=== PATIENT | female | born 1970 | race Caucasian/White ===

== ENCOUNTER → 2016-12-12 | Outpatient (REF) | payer OTHER | LOC: M SFHCPLAZ 08:19 | PROVIDERS: ATTEND Nurse Practitioner Family | DX: F32.9 Major depressive disorder, single episode, unspecified (principal) ==

== ENCOUNTER → 2017-07-10 | Outpatient (REF) | payer OTHER ==
[2017-07-10 12:42] LABS: ALBUMIN 4.2 GM/DL (3.2-5.2); ALBUMIN/GLOBULIN RATIO 1.62 (1.00-1.93); ALKALINE PHOSPHATASE 84 U/L (45-117); ALT/SGPT 44 U/L (12-78); ANION GAP 10 MEQ/L (8-16); AST/SGOT 22 U/L (15-37); BILIRUBIN,TOTAL 0.2 MG/DL (0.2-1.0); BLOOD UREA NITROGEN 16 MG/DL (7-18); CALCIUM LEVEL 9.7 MG/DL (8.5-10.1); CARBON DIOXIDE LEVEL 24 MEQ/L (21-32); CHLORIDE LEVEL 108 MEQ/L (98-107); CREATININE FOR GFR 0.96 MG/DL (0.55-1.02); FREE T4 1.05 NG/DL (0.76-1.46); GLOMERULAR FILTRATION RATE > 60.0 (>58); GLUCOSE, FASTING 106 MG/DL (70-105); POTASSIUM SERUM 4.7 MEQ/L (3.5-5.1); SODIUM LEVEL 142 MEQ/L (136-145); TOTAL PROTEIN 6.8 GM/DL (6.4-8.2)
== END ==
LOC: M SFHCPLAZ 08:11
PROVIDERS: ATTEND Nurse Practitioner Family
DX: F32.9 Major depressive disorder, single episode, unspecified (principal); E78.5 Hyperlipidemia, unspecified; E55.9 Vitamin D deficiency, unspecified

== ENCOUNTER → 2017-11-25 | Outpatient (REF) | payer OTHER ==
[2017-11-25 12:12] LABS: ALBUMIN 3.9 GM/DL (3.2-5.2); ALBUMIN/GLOBULIN RATIO 1.18 (1.00-1.93); ALKALINE PHOSPHATASE 95 U/L (45-117); ALT/SGPT 51 U/L (12-78); ANION GAP 10 MEQ/L (8-16); AST/SGOT 36 U/L (7-37); BILIRUBIN,TOTAL 0.3 MG/DL (0.2-1.0); BLOOD UREA NITROGEN 16 MG/DL (7-18); CALCIUM LEVEL 9.3 MG/DL (8.5-10.1); CARBON DIOXIDE LEVEL 25 MEQ/L (21-32); CHLORIDE LEVEL 106 MEQ/L (98-107); CREATININE FOR GFR 0.88 MG/DL (0.55-1.30); GLOMERULAR FILTRATION RATE > 60.0 (>58); GLUCOSE, FASTING 119 MG/DL (70-100); POTASSIUM SERUM 4.2 MEQ/L (3.5-5.1); SODIUM LEVEL 141 MEQ/L (136-145); TOTAL PROTEIN 7.2 GM/DL (6.4-8.2)
[2017-11-25 13:46] LABS: MALB URINE SIEMENS 14.5 MG/L
== END ==
LOC: M SFHCPLAZ 07:50
DX: I10 Essential (primary) hypertension (principal)

== ENCOUNTER 2018-01-13 20:22 | Emergency (ER) | payer OTHER | END 2018-01-13 22:12 | disposition home or self-care (01) | LOC: M ED 20:22 | DX: S16.1XXA Strain of muscle, fascia and tendon at neck level, initial encounter (principal); S29.012A Strain of muscle and tendon of back wall of thorax, initial encounter; S50.311A Abrasion of right elbow, initial encounter; V48.6XXA Car passenger injured in noncollision transport accident in traffic accident, initial encounter; Y92.9 Unspecified place or not applicable; Y93.9 Activity, unspecified; Y99.9 Unspecified external cause status; E11.9 Type 2 diabetes mellitus without complications; I10 Essential (primary) hypertension; F17.200 Nicotine dependence, unspecified, uncomplicated; M25.78 Osteophyte, vertebrae; M50.222 Other cervical disc displacement at C5-C6 level; M17.11 Unilateral primary osteoarthritis, right knee; Z79.82 Long term (current) use of aspirin; Z79.899 Other long term (current) drug therapy; Z88.8 Allergy status to other drugs, medicaments and biological substances | CPT/HCPCS: 73564 ==

== ENCOUNTER → 2018-05-26 | Outpatient (REF) | payer OTHER ==
[2018-05-26 11:10] LABS: ALBUMIN 3.7 GM/DL (3.2-5.2); ALBUMIN/GLOBULIN RATIO 0.95 (1.00-1.93); ALKALINE PHOSPHATASE 125 U/L (45-117); ALT/SGPT 53 U/L (12-78); ANION GAP 8 MEQ/L (8-16); AST/SGOT 34 U/L (7-37); BILIRUBIN,TOTAL 0.2 MG/DL (0.2-1.0); BLOOD UREA NITROGEN 18 MG/DL (7-18); CALCIUM LEVEL 9.3 MG/DL (8.5-10.1); CARBON DIOXIDE LEVEL 25 MEQ/L (21-32); CHLORIDE LEVEL 107 MEQ/L (98-107); CHOLESTEROL LEVEL 121 MG/DL (<200); CHOLESTEROL RISK RATIO 3.558 (<5); CREATININE FOR GFR 0.96 MG/DL (0.55-1.30); GLOMERULAR FILTRATION RATE > 60.0 (>58); GLUCOSE, FASTING 96 MG/DL (70-100); HDL CHOLESTEROL 34 MG/DL (>40); LDL CHOLESTEROL 49.2 MG/DL (<100); NON-HDL-C 87 MG/DL; POTASSIUM SERUM 4.9 MEQ/L (3.5-5.1); SODIUM LEVEL 140 MEQ/L (136-145); TOTAL PROTEIN 7.6 GM/DL (6.4-8.2); TRIGLYCERIDES LEVEL 189 MG/DL (<150)
== END ==
LOC: M SFHCPLAZ 08:21
DX: E78.5 Hyperlipidemia, unspecified (principal)

== ENCOUNTER → 2018-11-27 | Outpatient (REF) | payer OTHER ==
[~2018-11-27] MED LIST: BAYE325T12 PO; CORE12.5 PO; CYCL10TA PO; EFFE150C2 PO; FOLI5INJ2 SC; HUMI40KI2 SC; IBUP-1022 PO; LEXA1TAB2 PO; LIPI20TA PO; LISI-542 PO; LOPI600T PO; NABU-126 PO; VITA100066 PO; XELJ11TA PO
[2018-11-27 13:03] LABS: ALT/SGPT 44 U/L (12-78); BILIRUBIN,TOTAL 0.3 MG/DL (0.2-1.0); BLOOD UREA NITROGEN 10 MG/DL (7-18); CALCIUM LEVEL 9.5 MG/DL (8.5-10.1); CARBON DIOXIDE LEVEL 24 MEQ/L (21-32); CHLORIDE LEVEL 106 MEQ/L (98-107); CREATININE FOR GFR 0.94 MG/DL (0.55-1.30); GLOMERULAR FILTRATION RATE > 60.0 (>58); GLUCOSE, FASTING 96 MG/DL (70-100); POTASSIUM SERUM 4.6 MEQ/L (3.5-5.1); SODIUM LEVEL 141 MEQ/L (136-145); TOTAL PROTEIN 7.7 GM/DL (6.4-8.2)
== END ==
LOC: M SFHCPLAZ 09:55
PROVIDERS: ATTEND Nurse Practitioner Family
DX: E78.5 Hyperlipidemia, unspecified (principal)

== ENCOUNTER → 2019-06-25 | Outpatient (REF) | payer OTHER ==
[2019-06-25 11:14] LABS: ALBUMIN 3.7 GM/DL (3.2-5.2); ALT/SGPT 46 U/L (12-78); BILIRUBIN,TOTAL 0.3 MG/DL (0.2-1.0); BLOOD UREA NITROGEN 12 MG/DL (7-18); CALCIUM LEVEL 9.3 MG/DL (8.5-10.1); CARBON DIOXIDE LEVEL 28 MEQ/L (21-32); CHLORIDE LEVEL 107 MEQ/L (98-107); CHOLESTEROL LEVEL 118 MG/DL (<200); CHOLESTEROL RISK RATIO 3.687 (<5); CREATININE FOR GFR 0.96 MG/DL (0.55-1.30); GLOMERULAR FILTRATION RATE > 60.0 (>51); GLUCOSE, FASTING 97 MG/DL (70-100); HDL CHOLESTEROL 32 MG/DL (>40); LDL CHOLESTEROL 54 MG/DL (<100); NON-HDL-C 86 MG/DL; POTASSIUM SERUM 4.3 MEQ/L (3.5-5.1); SODIUM LEVEL 142 MEQ/L (136-145); THYROID STIMULATING HORMONE 0.981 uIU/ML (0.358-3.740); TOTAL 25(OH) VITAMIN D 34.4 NG/ML (30.0-100.0); TOTAL PROTEIN 7.2 GM/DL (6.4-8.2); TRIGLYCERIDES LEVEL 160 MG/DL (<150)
== END ==
LOC: M SFHCPLAZ 08:14
PROVIDERS: ATTEND Nurse Practitioner Family
DX: I10 Essential (primary) hypertension (principal); E78.5 Hyperlipidemia, unspecified; E55.9 Vitamin D deficiency, unspecified; F32.9 Major depressive disorder, single episode, unspecified; G47.00 Insomnia, unspecified

== ENCOUNTER 2019-10-17 11:16 | Emergency (ER) | payer OTHER ==
[~2019-10-17] VITALS: Ht 167.6 cm; Wt 110.0 kg
--- NOTE | 2019-10-17 11:57 | REP ---
Portable chest, 11:38 a.m., single frontal view with the patient semi upright: Comparison is 02/27/2010. The lung frank are clear. The cardiac size is normal. The gwendolyn, mediastinum, and skeletal structures are unremarkable. Impression: Negative portable chest. There is no interval change. Electronically Signed by Kelvin Warner MD 10/17/2019 11:49 A
[2019-10-17 12:07] LABS: BASO # 0.1 10^3/uL (0.0-0.2); BASO % 0.7 % (0.0-1.0); EOS # 0.3 10^3/uL (0.0-0.5); EOS % 2.9 % (0.0-3.0); HEMOGLOBIN 15.4 g/dl (12.0-15.5); LYMPH # 2.5 10^3/uL (1.5-5.0); LYMPH % 23.9 % (24.0-44.0); MEAN CORPUSCULAR HGB CONC 33.5 g/dl (32.0-36.5); MEAN CORPUSCULAR VOLUME 95.6 fl (80.0-96.0); MONO # 0.8 10^3/uL (0.0-0.8); MONO % 7.5 % (0.0-5.0); NEUTROPHILS # 6.7 10^3/uL (1.5-8.5); NEUTROPHILS % 64.6 % (36.0-66.0); PLATELET COUNT, AUTOMATED 375 10^3/uL (150-450); RED BLOOD COUNT 4.81 10^6/uL (4.00-5.40); WHITE BLOOD COUNT 10.3 10^3/uL (4.0-10.0)
[2019-10-17 12:18] LABS: INR 1.07; PROTHROMBIN TIME 13.6 SECONDS (11.8-14.0)
[2019-10-17 12:39] LABS: BLOOD UREA NITROGEN 16 MG/DL (7-18); CALCIUM LEVEL 9.3 MG/DL (8.5-10.1); CARBON DIOXIDE LEVEL 27 MEQ/L (21-32); CHLORIDE LEVEL 108 MEQ/L (98-107); CK-MB VALUE MASS < 1.0 NG/ML (<3.6); CPK CREATINE PHOSPHOKINASE 44 U/L (26-192); CREATININE FOR GFR 0.91 MG/DL (0.55-1.30); FREE T4 1.18 NG/DL (0.76-1.46); GLOMERULAR FILTRATION RATE > 60.0 (>51); GLUCOSE, FASTING 131 MG/DL (70-100); MAGNESIUM LEVEL 2.1 MG/DL (1.8-2.4); MB/CK RELATIVE INDEX 2.27 (< OR =4); POTASSIUM SERUM 4.1 MEQ/L (3.5-5.1); SODIUM LEVEL 143 MEQ/L (136-145); THYROID STIMULATING HORMONE 0.924 uIU/ML (0.358-3.740); TROPONIN I < 0.02 NG/ML (< 0.10)
[2019-10-17 13:07] LABS: D-DIMER QUANT 279.16 ng/ml (<500)
[2019-10-17 15:31] VITALS: BP 123/80
[2019-10-17 15:41] LABS: CK-MB VALUE MASS < 1.0 NG/ML (<3.6); CPK CREATINE PHOSPHOKINASE 45 U/L (26-192); MB/CK RELATIVE INDEX 2.22 (< OR =4); TROPONIN I < 0.02 NG/ML (< 0.10)
--- NOTE | 2019-10-17 21:47 | ECGEPIP ---
[facility] - ED Test Date: 2019-10-17 Pat Name: KALIE MUSA Department: Room: - Gender: Female Hall Tender: ZOHAIB : 1970 Requested By: Elodia Brooks Order Number: [id number] Reading MD: Sergey Parnell Measurements Intervals [place] Rate: 97 P: 51 IA: 172 QRS: 70 QRSD: 99 T: 67 QT: 348 QTc: 442 Interpretive Statements SINUS RHYTHM NSTTW ABNORMALITIES NO PRIORS FOR COMPARISON Electronically Signed on 10-17-2019 21:47:20 EST by Sergey Parnell
== END 2019-10-17 15:57 | disposition home or self-care (01) ==
LOC: M ED 11:16
DX: R00.2 Palpitations (principal); I25.10 Atherosclerotic heart disease of native coronary artery without angina pectoris; I25.2 Old myocardial infarction; E78.5 Hyperlipidemia, unspecified; F32.9 Major depressive disorder, single episode, unspecified; I42.9 Cardiomyopathy, unspecified; F17.200 Nicotine dependence, unspecified, uncomplicated; Z79.82 Long term (current) use of aspirin; Z79.899 Other long term (current) drug therapy; Z88.8 Allergy status to other drugs, medicaments and biological substances

== ENCOUNTER → 2019-10-29 | Outpatient (REF) | payer OTHER ==
[2019-10-29 12:20] LABS: CREATININE, URINE 79.4 MG/DL; MALB URINE SIEMENS 6.2 MG/L; MAU/CREAT RATIO 7.8 MCG/MG (0.0-30.0)
[2019-10-29 12:25] LABS: ALBUMIN 4.1 GM/DL (3.2-5.2); ALT/SGPT 72 U/L (12-78); BILIRUBIN,TOTAL 0.4 MG/DL (0.2-1.0); BLOOD UREA NITROGEN 13 MG/DL (7-18); CALCIUM LEVEL 9.6 MG/DL (8.5-10.1); CARBON DIOXIDE LEVEL 27 MEQ/L (21-32); CHLORIDE LEVEL 105 MEQ/L (98-107); CHOLESTEROL LEVEL 137 MG/DL (<200); CHOLESTEROL RISK RATIO 4.566 (<5); CREATININE FOR GFR 0.92 MG/DL (0.55-1.30); FREE T4 1.17 NG/DL (0.76-1.46); GLOMERULAR FILTRATION RATE > 60.0 (>51); GLUCOSE, FASTING 92 MG/DL (70-100); HDL CHOLESTEROL 30 MG/DL (>40); LDL CHOLESTEROL 63 MG/DL (<100); NON-HDL-C 107 MG/DL; POTASSIUM SERUM 4.7 MEQ/L (3.5-5.1); SODIUM LEVEL 140 MEQ/L (136-145); THYROID STIMULATING HORMONE 0.775 uIU/ML (0.358-3.740); TOTAL 25(OH) VITAMIN D 35.4 NG/ML (30.0-100.0); TOTAL PROTEIN 7.3 GM/DL (6.4-8.2); TRIGLYCERIDES LEVEL 220 MG/DL (<150)
== END ==
LOC: M SFHCPLAZ 09:58
PROVIDERS: ATTEND Nurse Practitioner Adult Health
DX: I10 Essential (primary) hypertension (principal); M25.50 Pain in unspecified joint; E78.5 Hyperlipidemia, unspecified; F32.9 Major depressive disorder, single episode, unspecified; G47.00 Insomnia, unspecified; E55.9 Vitamin D deficiency, unspecified

== ENCOUNTER 2020-04-12 13:34 | Emergency (ER) | payer OTHER ==
[~2020-04-12 13:34] MED LIST changes: +CYCL-707 PO; -CYCL10TA PO; -NABU-126 PO; +NABU-51 PO
== END 2020-04-12 17:50 | disposition home or self-care (01) ==
LOC: M ED 13:34
DX: M25.562 Pain in left knee (principal); I10 Essential (primary) hypertension; E78.49 Other hyperlipidemia; L40.9 Psoriasis, unspecified; Z79.82 Long term (current) use of aspirin; Z79.899 Other long term (current) drug therapy; Z88.8 Allergy status to other drugs, medicaments and biological substances

== ENCOUNTER → 2020-04-28 | Outpatient (REF) | payer OTHER ==
[2020-06-13 11:01] LABS: ALT/SGPT 55 U/L (12-78); BILIRUBIN,TOTAL 0.4 MG/DL (0.2-1.0); BLOOD UREA NITROGEN 8 MG/DL (7-18); CALCIUM LEVEL 9.8 MG/DL (8.5-10.1); CARBON DIOXIDE LEVEL 28 MEQ/L (21-32); CHLORIDE LEVEL 107 MEQ/L (98-107); CHOLESTEROL LEVEL 130 MG/DL (<200); CHOLESTEROL RISK RATIO 4.062 (<5); GLOMERULAR FILTRATION RATE > 60.0 (>51); GLUCOSE, FASTING 106 MG/DL (70-100); HDL CHOLESTEROL 32 MG/DL (>40); LDL CHOLESTEROL 64 MG/DL (<100); NON-HDL-C 98 MG/DL; POTASSIUM SERUM 4.6 MEQ/L (3.5-5.1); SODIUM LEVEL 141 MEQ/L (136-145); THYROID STIMULATING HORMONE 0.802 uIU/ML (0.358-3.740); TOTAL PROTEIN 7.6 GM/DL (6.4-8.2); TRIGLYCERIDES LEVEL 170 MG/DL (<150)
== END ==
LOC: M SFHCPLAZ 11:35
PROVIDERS: ATTEND Nurse Practitioner Adult Health
DX: Z13.1 Encounter for screening for diabetes mellitus (principal); Z13.9 Encounter for screening, unspecified; E55.9 Vitamin D deficiency, unspecified; E78.5 Hyperlipidemia, unspecified; I10 Essential (primary) hypertension

== ENCOUNTER → 2020-08-18 | Outpatient (CLI) | payer OTHER ==
[2020-08-18 15:06] LABS: BASO # 0.1 10^3/uL (0.0-0.2); BASO % 0.6 % (0.0-1.0); EOS # 0.2 10^3/uL (0.0-0.5); HEMATOCRIT 44.7 % (36.0-47.0); HEMOGLOBIN 14.5 g/dl (12.0-15.5); LYMPH # 2.3 10^3/uL (1.5-5.0); LYMPH % 30.4 % (24.0-44.0); MEAN CORPUSCULAR HEMOGLOBIN 32.7 pg (27.0-33.0); MEAN CORPUSCULAR HGB CONC 32.4 g/dl (32.0-36.5); MEAN CORPUSCULAR VOLUME 100.7 fl (80.0-96.0); MONO # 0.5 10^3/uL (0.0-0.8); MONO % 6.5 % (0.0-5.0); NEUTROPHILS # 4.6 10^3/uL (1.5-8.5); NEUTROPHILS % 59.2 % (36.0-66.0); PLATELET COUNT, AUTOMATED 338 10^3/uL (150-450); RED BLOOD COUNT 4.44 10^6/uL (4.00-5.40); WHITE BLOOD COUNT 7.7 10^3/uL (4.0-10.0)
[2020-08-18 15:56] LABS: ERYTHROCYTE SEDIMENTATION RATE 19 mm/hr (0-30)
[2020-08-18 16:50] LABS: ALT/SGPT 62 U/L (12-78); C REACTIVE PROTEIN QUANTITATIV < 0.30 MG/DL (0.00-0.30); CREATININE FOR GFR 0.98 MG/DL (0.55-1.30); GLOMERULAR FILTRATION RATE > 60.0 (>51)
== END ==
LOC: M PLALAB 08:50
PROVIDERS: ATTEND Internal Medicine
DX: Z51.81 Encounter for therapeutic drug level monitoring (principal); Z79.899 Other long term (current) drug therapy

== ENCOUNTER → 2020-11-17 | Outpatient (REF) | payer OTHER ==
[~2020-11-17] MED LIST changes: -LISI-542 PO; +LISI-898 PO
[2020-11-17 14:23] LABS: HEMOGLOBIN A1c 5.1 %
[2020-11-17 15:00] LABS: ALBUMIN 3.9 GM/DL (3.2-5.2); ALT/SGPT 77 U/L (12-78); BILIRUBIN,TOTAL 0.3 MG/DL (0.2-1.0); BLOOD UREA NITROGEN 11 MG/DL (7-18); CALCIUM LEVEL 9.8 MG/DL (8.5-10.1); CARBON DIOXIDE LEVEL 30 MEQ/L (21-32); CHLORIDE LEVEL 104 MEQ/L (98-107); CHOLESTEROL LEVEL 141 MG/DL (<200); CHOLESTEROL RISK RATIO 4.147 (<5); CREATININE FOR GFR 0.91 MG/DL (0.55-1.30); GLOMERULAR FILTRATION RATE > 60.0 (>51); GLUCOSE, FASTING 98 MG/DL (70-100); HDL CHOLESTEROL 34 MG/DL (>40); LDL CHOLESTEROL 73 MG/DL (<100); NON-HDL-C 107 MG/DL; POTASSIUM SERUM 4.4 MEQ/L (3.5-5.1); SODIUM LEVEL 139 MEQ/L (136-145); TOTAL PROTEIN 7.1 GM/DL (6.4-8.2); TRIGLYCERIDES LEVEL 170 MG/DL (<150)
== END ==
LOC: M SFHCPLAZ 09:32
PROVIDERS: ATTEND Nurse Practitioner Adult Health
DX: Z00.00 Encounter for general adult medical examination without abnormal findings (principal); E78.5 Hyperlipidemia, unspecified; E74.39 Other disorders of intestinal carbohydrate absorption

== ENCOUNTER → 2021-05-25 | Outpatient (CLI) | payer OTHER ==
[~2021-05-25] MED LIST changes: -NABU-51 PO; +NABU-71 PO
[2021-05-25 11:12] LABS: HEMOGLOBIN A1c 5.8 %
[2021-05-25 11:31] LABS: ALBUMIN 3.7 GM/DL (3.2-5.2); BILIRUBIN,TOTAL 0.3 MG/DL (0.2-1.0); CALCIUM LEVEL 9.6 MG/DL (8.5-10.1); CHOLESTEROL RISK RATIO 4.925 (<5); CREATININE FOR GFR 1.1 MG/DL (0.55-1.30); GLOMERULAR FILTRATION RATE 55.5 (>51); POTASSIUM SERUM 4.4 MEQ/L (3.5-5.1); THYROID STIMULATING HORMONE 0.965 uIU/ML (0.358-3.740); TOTAL 25(OH) VITAMIN D 47.7 NG/ML (30.0-100.0); TOTAL PROTEIN 6.9 GM/DL (6.4-8.2)
== END ==
LOC: M PLALAB 08:07
PROVIDERS: ATTEND Nurse Practitioner Adult Health
DX: I10 Essential (primary) hypertension (principal); E78.5 Hyperlipidemia, unspecified; E74.39 Other disorders of intestinal carbohydrate absorption; Z12.39 Encounter for other screening for malignant neoplasm of breast; E55.9 Vitamin D deficiency, unspecified

== ENCOUNTER → 2021-11-23 | Outpatient (CLI) | payer OTHER ==
[~2021-11-23] MED LIST changes: -LISI-898 PO; +LISI5TAB11 PO
[2021-11-23 14:37] LABS: ALBUMIN 3.8 GM/DL (3.2-5.2); ALT/SGPT 66 U/L (12-78); BILIRUBIN,TOTAL 0.2 MG/DL (0.2-1.0); BLOOD UREA NITROGEN 12 MG/DL (7-18); CALCIUM LEVEL 9.3 MG/DL (8.5-10.1); CARBON DIOXIDE LEVEL 27 MEQ/L (21-32); CHLORIDE LEVEL 108 MEQ/L (98-107); CHOLESTEROL LEVEL 127 MG/DL (<200); CHOLESTEROL RISK RATIO 4.233 (<5); CREATININE FOR GFR 0.95 MG/DL (0.55-1.30); GLOMERULAR FILTRATION RATE > 60.0 (>51); GLUCOSE, FASTING 110 MG/DL (70-100); HDL CHOLESTEROL 30 MG/DL (>40); LDL CHOLESTEROL 60 MG/DL (<100); NON-HDL-C 97 MG/DL; POTASSIUM SERUM 4.5 MEQ/L (3.5-5.1); SODIUM LEVEL 139 MEQ/L (136-145); THYROID STIMULATING HORMONE 0.921 uIU/ML (0.358-3.740); TOTAL 25(OH) VITAMIN D 57.5 NG/ML (30.0-100.0); TOTAL PROTEIN 7.2 GM/DL (6.4-8.2); TRIGLYCERIDES LEVEL 184 MG/DL (<150)
== END ==
LOC: M PLALAB 08:46
PROVIDERS: ATTEND Nurse Practitioner Adult Health
DX: I10 Essential (primary) hypertension (principal); E74.39 Other disorders of intestinal carbohydrate absorption; Z12.39 Encounter for other screening for malignant neoplasm of breast; E55.9 Vitamin D deficiency, unspecified; E78.2 Mixed hyperlipidemia

== ENCOUNTER → 2023-03-14 | Outpatient (CLI) | payer OTHER ==
[2023-03-14 15:15] LABS: HEMATOCRIT 44.5 % (36.0-47.0); HEMOGLOBIN 14.8 g/dl (12.0-15.5); MEAN CORPUSCULAR HEMOGLOBIN 34.3 pg (27.0-33.0); MEAN CORPUSCULAR HGB CONC 33.3 g/dl (32.0-36.5); PLATELET COUNT, AUTOMATED 201 10^3/uL (150-450); RED BLOOD COUNT 4.32 10^6/uL (4.00-5.40); WHITE BLOOD COUNT 8.5 10^3/uL (4.0-10.0)
[2023-03-14 15:23] LABS: ALBUMIN 4.1 G/DL (3.2-5.2); ALKALINE PHOSPHATASE 76 U/L (46-116); ALT/SGPT 76 U/L (7.0-40); AST/SGOT 69 U/L (<34); BILIRUBIN,TOTAL 0.6 MG/DL (0.3-1.2); BLOOD UREA NITROGEN 16 MG/DL (9-23); CALCIUM LEVEL 10.5 MG/DL (8.5-10.1); CARBON DIOXIDE LEVEL 26 MMOL/L (20-31); CHLORIDE LEVEL 110 MMOL/L (98-107); CHOLESTEROL LEVEL 147 MG/DL (<200); CHOLESTEROL RISK RATIO 4.14 (<5); GLOMERULAR FILTRATION RATE > 60.0 (>51); GLUCOSE, FASTING 102 MG/DL (60-100); HDL CHOLESTEROL 35.5 MG/DL (>40); LDL CHOLESTEROL 69.9 MG/DL (<100); NON-HDL-C 111.5 MG/DL; POTASSIUM SERUM 4.4 MMOL/L (3.5-5.1); SODIUM LEVEL 137 MMOL/L (136-145); THYROID STIMULATING HORMONE 1.128 uIU/ML (0.55-4.78); TOTAL 25(OH) VITAMIN D 32.7 NG/ML (20.0-100.0); TOTAL PROTEIN 7.2 G/DL (5.7-8.2); TRIGLYCERIDES LEVEL 208 MG/DL (<150)
[2023-03-14 17:55] LABS: HEMOGLOBIN A1c 6.2 % (4.0-6.0)
== END ==
LOC: M PLALAB 10:16
PROVIDERS: ATTEND Nurse Practitioner Adult Health
DX: E78.2 Mixed hyperlipidemia (principal); I10 Essential (primary) hypertension; E74.39 Other disorders of intestinal carbohydrate absorption; E55.9 Vitamin D deficiency, unspecified; Z13.29 Encounter for screening for other suspected endocrine disorder

== ENCOUNTER 2023-08-08 20:48 | Emergency (ER) | payer OTHER ==
[~2023-08-08] VITALS: Ht 165.1 cm; Wt 113.6 kg
[2023-08-09 00:52] VITALS: BP 137/69; TEMP 97.8; O2SAT 97
== END 2023-08-09 01:39 | disposition left against medical advice (07) ==
LOC: M ED 20:48
DX: Z53.21 Procedure and treatment not carried out due to patient leaving prior to being seen by health care provider (principal)

== ENCOUNTER 2023-08-18 07:08 | Emergency (ER) | payer OTHER ==
[~2023-08-18] VITALS: Ht 165.1 cm; Wt 114.1 kg
[~2023-08-18 07:08] MED LIST changes: -EFFE150C2 PO; +EFFE150C3 PO
[2023-08-18] MEDS ORDERED: DEUC6TAB (07:31)
[2023-08-18] MEDS ORDERED: CITA20TA7 (07:31)
[2023-08-18] MEDS ORDERED: QUET1TAB17 (07:31)
[2023-08-18] MEDS ORDERED: predniSONE 20 MG TAB PO ONE (09:45)
[2023-08-18] MEDS ORDERED: NORCO, ANEXSIA 5/325MG TABLET (HYDROcodone/ACETAMINOPHEN) PO ONE (09:45)
[2023-08-18 10:22] LABS: BASO % 0.3 % (0.0-1.0); EOS # 0.2 10^3/uL (0.0-0.5); EOS % 1.4 % (0.0-3.0); HEMATOCRIT 37.7 % (36.0-47.0); HEMOGLOBIN 12.6 g/dl (12.0-15.5); LYMPH # 2.3 10^3/uL (1.5-5.0); LYMPH % 17.7 % (24.0-44.0); MEAN CORPUSCULAR HEMOGLOBIN 33.8 pg (27.0-33.0); MEAN CORPUSCULAR HGB CONC 33.4 g/dl (32.0-36.5); MEAN CORPUSCULAR VOLUME 101.1 fl (80.0-96.0); MONO # 1.2 10^3/uL (0.0-0.8); MONO % 9.2 % (2.0-8.0); NEUTROPHILS # 9.2 10^3/uL (1.5-8.5); PLATELET COUNT, AUTOMATED 411 10^3/uL (150-450); RED BLOOD COUNT 3.73 10^6/uL (4.00-5.40); WHITE BLOOD COUNT 13.1 10^3/uL (4.0-10.0)
[2023-08-18 10:30] LABS: ERYTHROCYTE SEDIMENTATION RATE 95 mm/hr (0-30)
[2023-08-18 10:47] LABS: URIC ACID 4.3 MG/DL (3.1-7.8)
[2023-08-18 10:48] LABS: C REACTIVE PROTEIN QUANTITATIV 8.4 MG/DL (<1.0)
[2023-08-18 10:49] LABS: CALCIUM LEVEL 9.4 MG/DL (8.5-10.1); CREATININE FOR GFR 1.09 MG/DL (0.55-1.30); GLOMERULAR FILTRATION RATE 55.7 (>51)
[2023-08-18] MEDS ORDERED: PERC5TAB12 PO (11:32)
[2023-08-18] MEDS ORDERED: PRED20TA PO (11:32)
[2023-08-18] MEDS ORDERED: CEPH500C PO (11:34)
[2023-08-18 11:49] VITALS: BP 134/62; TEMP 98.6; O2SAT 99
== END 2023-08-18 11:53 | disposition home or self-care (01) ==
LOC: M ED 07:08
DX: M25.571 Pain in right ankle and joints of right foot (principal); M02.871 Other reactive arthropathies, right ankle and foot; D72.829 Elevated white blood cell count, unspecified; F41.9 Anxiety disorder, unspecified; F32.A Depression, unspecified; I25.2 Old myocardial infarction; F17.200 Nicotine dependence, unspecified, uncomplicated; Z86.79 Personal history of other diseases of the circulatory system; Z88.9 Allergy status to unspecified drugs, medicaments and biological substances; Z79.02 Long term (current) use of antithrombotics/antiplatelets; Z79.82 Long term (current) use of aspirin; Z79.811 Long term (current) use of aromatase inhibitors; Z79.52 Long term (current) use of systemic steroids; Z79.899 Other long term (current) drug therapy
CPT/HCPCS: 36415; 80048; 84550; 85025; 85652; 86140; 99283; J7512

== ENCOUNTER 2023-09-11 00:02 | Observation (INO) | payer MEDICAID, OTHER ==
[~2023-09-11] VITALS: Ht 165.1 cm; Wt 110.3 kg
[~2023-09-11 00:02] MED LIST changes: +CEPH500C PO; +CITA20TA7; +DEUC6TAB PO; +PERC5TAB12 PO; +PRED20TA PO; +QUET1TAB17 PO
[2023-09-11 01:25] LABS: BASO % 0.3 % (0.0-1.0); EOS % 0.4 % (0.0-3.0); HEMATOCRIT 34.7 % (36.0-47.0); HEMOGLOBIN 11.4 g/dl (12.0-15.5); LYMPH # 0.9 10^3/uL (1.5-5.0); LYMPH % 8.3 % (24.0-44.0); MEAN CORPUSCULAR HEMOGLOBIN 32.9 pg (27.0-33.0); MEAN CORPUSCULAR HGB CONC 32.9 g/dl (32.0-36.5); MEAN CORPUSCULAR VOLUME 100.3 fl (80.0-96.0); MONO # 0.5 10^3/uL (0.0-0.8); MONO % 4.5 % (2.0-8.0); NEUTROPHILS # 8.9 10^3/uL (1.5-8.5); NEUTROPHILS % 85.7 % (36.0-66.0); PLATELET COUNT, AUTOMATED 360 10^3/uL (150-450); RED BLOOD COUNT 3.46 10^6/uL (4.00-5.40); WHITE BLOOD COUNT 10.3 10^3/uL (4.0-10.0)
[2023-09-11 01:45] LABS: ALBUMIN 2.7 G/DL (3.2-5.2); ALKALINE PHOSPHATASE 79 U/L (46-116); ALT/SGPT 16 U/L (7.0-40); AST/SGOT 32 U/L (<34); BILIRUBIN,DIRECT 0.2 MG/DL (<0.4); BILIRUBIN,TOTAL 0.3 MG/DL (0.3-1.2); BLOOD UREA NITROGEN 16 MG/DL (9-23); CALCIUM LEVEL 9.3 MG/DL (8.5-10.1); CARBON DIOXIDE LEVEL 27 MMOL/L (20-31); CHLORIDE LEVEL 102 MMOL/L (98-107); CREATININE FOR GFR 0.84 MG/DL (0.55-1.30); GLOMERULAR FILTRATION RATE > 60.0 (>51); GLUCOSE, FASTING 144 MG/DL (60-100); POTASSIUM SERUM 4.2 MMOL/L (3.5-5.1); SODIUM LEVEL 134 MMOL/L (136-145)
[2023-09-11] MEDS ORDERED: IPRATROPIUM 0.5MG/ALBUTEROL 2.5MG INH SOL UD 3ML (DUONEB) NEB ONE (06:50)
[2023-09-11] MEDS ORDERED: dexAMETHasone 20MG/5ML VIAL IV ONE (06:55)
[2023-09-11 07:30] LABS: CK-MB VALUE MASS < 1.0 NG/ML (<3.6)
[2023-09-11 07:31] LABS: CPK CREATINE PHOSPHOKINASE 54 U/L (34-145); MB/CK RELATIVE INDEX 1.85 (< OR =4)
[2023-09-11] MEDS: IPRATROPIUM 0.5MG/ALBUTEROL 2.5MG INH SOL UD 3ML (DUONEB) NEB SCH ×5 (08:19→19:10)
[2023-09-11] MEDS: NICOTINE 21MG/24HR 1 EA TRANSDERMAL TD SCH (09:00)
[2023-09-11] MEDS ORDERED: MED REC IN PROGRESS XX SCH (09:05)
[2023-09-11 09:54] LABS: VENOUS BASE EXCESS 1.8 (-2.0-2.0); VENOUS HCO3 27.2 MMOL/L (23.0-27.0); VENOUS O2 SATURATION 93.4 % (60.0-80.0); VENOUS PARTIAL PRESSURE CO2 45.9 mmHg (38.0-50.0); VENOUS PARTIAL PRESSURE O2 70.4 mmHg (30.0-50.0); VENOUS PH 7.391 UNITS (7.330-7.430); VENOUS TOTAL CO2 28.6 MMOL/L (24.0-28.0)
[2023-09-11] MEDS ORDERED: COLC0.6T47 PO (10:17)
[2023-09-11] MEDS ORDERED: OMEP40CA5 PO (10:17)
[2023-09-11] MEDS ORDERED: QUET1TAB17 PO (10:17)
[2023-09-11] MEDS ORDERED: IBUP80TA PO (10:17)
[2023-09-11] MEDS ORDERED: CARV6.25 PO (10:17)
[2023-09-11] MEDS ORDERED: CITA40TA7 PO (10:17)
[2023-09-11] MEDS ORDERED: D31000CA4 PO (10:17)
[2023-09-11] MEDS ORDERED: ATOR40TA75 PO (10:17)
[2023-09-11] MEDS ORDERED: HOME MED LIST COMPLETE! XX SCH (10:20)
[2023-09-11] MEDS ORDERED: ACETAMINOPHEN TAB 650MG DOSE (2X325MG) PO PRN (10:40)
[2023-09-11] MEDS ORDERED: MOM 30ML SUSPENSION UDC PO PRN (10:40)
[2023-09-11] MEDS ORDERED: MAALOX 30 ML SUSP *UDC PO PRN (10:40)
[2023-09-11 11:25] LABS: MAGNESIUM LEVEL 1.8 MG/DL (1.8-2.4)
[2023-09-11 11:34] LABS: PROCALCITONIN 0.09 ng/ml
[2023-09-11] MEDS: COLCHICINE 0.6 MG TABLET PO SCH (13:11)
[2023-09-11] MEDS: CitaloPRAM (CeleXA) 20 MG TAB PO SCH (13:11)
[2023-09-11] MEDS: CARVedilol 6.25 MG TAB PO SCH ×2 (13:12→20:34)
[2023-09-11] MEDS: ATORVASTATIN 20 MG TAB PO SCH (13:12)
[2023-09-11] MEDS: guaiFENesin ER TABLET 600 MG TAB PO SCH ×2 (13:13→20:34)
[2023-09-11] MEDS: PANTOPRAZOLE 40MG TAB (PROTONIX) PO SCH (13:13)
[2023-09-11] MEDS: BENZONATATE 100MG CAPSULE PO SCH ×2 (13:14→20:34)
[2023-09-11] MEDS: QUEtiapine FUMARATE 25 MG TAB PO SCH ×2 (13:14→20:34)
[2023-09-11 14:10] VITALS: BP 143/93; TEMP 98.1; O2SAT 93
[2023-09-11] MEDS: lisinopriL 5 MG TAB PO SCH (14:28)
[2023-09-11] MEDS: methylPREDNISolone 40MG 1ML VIAL IV SCH ×2 (14:28→20:34)
[2023-09-11] MEDS: OSELTAMIVIR PHOSPHATE 75 MG CAP (TAMIFLU) PO SCH ×2 (14:58→20:34)
[2023-09-11 18:32] VITALS: O2SAT 93
[2023-09-11] MEDS: SYMBICORT 160/4.5MCG INHALER 6GM INH SCH (19:10)
[2023-09-11 20:30] VITALS: BP 125/63; TEMP 98.1; O2SAT 94
[2023-09-11] MEDS: ENOXAPARIN 40MG/0.4ML SYRINGE (J1650 PER 10MG) SC SCH (20:35)
[2023-09-12] MEDS: IPRATROPIUM 0.5MG/ALBUTEROL 2.5MG INH SOL UD 3ML (DUONEB) NEB SCH ×4 (01:38→19:34)
[2023-09-12] MEDS: methylPREDNISolone 40MG 1ML VIAL IV SCH ×2 (03:58→11:41)
[2023-09-12 06:11] VITALS: BP 132/73; TEMP 97.9; O2SAT 92
[2023-09-12 06:21] LABS: HEMATOCRIT 33.9 % (36.0-47.0); HEMOGLOBIN 11.2 g/dl (12.0-15.5); MEAN CORPUSCULAR HEMOGLOBIN 33.1 pg (27.0-33.0); MEAN CORPUSCULAR VOLUME 100.3 fl (80.0-96.0); PLATELET COUNT, AUTOMATED 375 10^3/uL (150-450); RED BLOOD COUNT 3.38 10^6/uL (4.00-5.40); WHITE BLOOD COUNT 12.2 10^3/uL (4.0-10.0)
[2023-09-12 06:51] LABS: BLOOD UREA NITROGEN 27 MG/DL (9-23); CALCIUM LEVEL 9.4 MG/DL (8.5-10.1); CARBON DIOXIDE LEVEL 29 MMOL/L (20-31); CHLORIDE LEVEL 103 MMOL/L (98-107); CREATININE FOR GFR 0.89 MG/DL (0.55-1.30); GLOMERULAR FILTRATION RATE > 60.0 (>51); GLUCOSE, FASTING 135 MG/DL (60-100); POTASSIUM SERUM 4.4 MMOL/L (3.5-5.1); SODIUM LEVEL 138 MMOL/L (136-145)
[2023-09-12] MEDS: SYMBICORT 160/4.5MCG INHALER 6GM INH SCH ×2 (07:39→19:34)
[2023-09-12] MEDS ORDERED: [UNRECOGNIZED DRUG - OTHER] PO SCH (09:00)
[2023-09-12] MEDS: NICOTINE 21MG/24HR 1 EA TRANSDERMAL TD SCH (09:06)
[2023-09-12] MEDS: ENOXAPARIN 40MG/0.4ML SYRINGE (J1650 PER 10MG) SC SCH ×2 (09:06→21:30)
[2023-09-12] MEDS: ATORVASTATIN 20 MG TAB PO SCH (09:08)
[2023-09-12] MEDS: BENZONATATE 100MG CAPSULE PO SCH ×2 (09:08→21:28)
[2023-09-12] MEDS: guaiFENesin ER TABLET 600 MG TAB PO SCH ×2 (09:08→21:28)
[2023-09-12] MEDS: COLCHICINE 0.6 MG TABLET PO SCH (09:08)
[2023-09-12] MEDS: OSELTAMIVIR PHOSPHATE 75 MG CAP (TAMIFLU) PO SCH ×2 (09:08→21:28)
[2023-09-12] MEDS: QUEtiapine FUMARATE 25 MG TAB PO SCH ×2 (09:09→21:29)
[2023-09-12] MEDS: CitaloPRAM (CeleXA) 20 MG TAB PO SCH (09:09)
[2023-09-12] MEDS: PANTOPRAZOLE 40MG TAB (PROTONIX) PO SCH (09:09)
[2023-09-12] MEDS: lisinopriL 5 MG TAB PO SCH (09:09)
[2023-09-12] MEDS: CARVedilol 6.25 MG TAB PO SCH ×2 (09:09→21:29)
[2023-09-12 13:45] VITALS: O2SAT 90
[2023-09-12 14:00] VITALS: BP 108/57; TEMP 97.7; O2SAT 90
[2023-09-12] MEDS ORDERED: RAMELTEON 8 MG TAB (ROZEREM) PO PRN (18:20)
[2023-09-12 20:32] VITALS: BP 104/57; TEMP 98.1; O2SAT 90
[2023-09-12 20:56] VITALS: BP 104/57
[2023-09-13] MEDS: IPRATROPIUM 0.5MG/ALBUTEROL 2.5MG INH SOL UD 3ML (DUONEB) NEB SCH ×2 (01:50→08:26)
[2023-09-13 03:40] VITALS: O2SAT 84
[2023-09-13 03:45] VITALS: O2SAT 91
[2023-09-13 05:16] VITALS: BP 131/68; TEMP 98.2; O2SAT 92
[2023-09-13] MEDS: SYMBICORT 160/4.5MCG INHALER 6GM INH SCH (08:26)
[2023-09-13] MEDS: guaiFENesin ER TABLET 600 MG TAB PO SCH (08:46)
[2023-09-13] MEDS: CitaloPRAM (CeleXA) 20 MG TAB PO SCH (08:46)
[2023-09-13] MEDS: PANTOPRAZOLE 40MG TAB (PROTONIX) PO SCH (08:46)
[2023-09-13] MEDS: OSELTAMIVIR PHOSPHATE 75 MG CAP (TAMIFLU) PO SCH (08:46)
[2023-09-13] MEDS: BENZONATATE 100MG CAPSULE PO SCH (08:46)
[2023-09-13 08:47] VITALS: BP 121/62
[2023-09-13] MEDS: ATORVASTATIN 20 MG TAB PO SCH (08:47)
[2023-09-13] MEDS: COLCHICINE 0.6 MG TABLET PO SCH (08:47)
[2023-09-13] MEDS: lisinopriL 5 MG TAB PO SCH (08:47)
[2023-09-13] MEDS: QUEtiapine FUMARATE 25 MG TAB PO SCH (08:47)
[2023-09-13] MEDS: NICOTINE 21MG/24HR 1 EA TRANSDERMAL TD SCH (08:48)
[2023-09-13] MEDS: CARVedilol 6.25 MG TAB PO SCH (08:48)
[2023-09-13] MEDS: ENOXAPARIN 40MG/0.4ML SYRINGE (J1650 PER 10MG) SC SCH (08:49)
[2023-09-13 09:00] VITALS: O2SAT 91
[2023-09-13] MEDS ORDERED: predniSONE 20 MG TAB PO SCH (09:00)
[2023-09-13 10:27] LABS: HEMATOCRIT 34.8 % (36.0-47.0); HEMOGLOBIN 11.2 g/dl (12.0-15.5); MEAN CORPUSCULAR HEMOGLOBIN 32.3 pg (27.0-33.0); MEAN CORPUSCULAR HGB CONC 32.2 g/dl (32.0-36.5); MEAN CORPUSCULAR VOLUME 100.3 fl (80.0-96.0); PLATELET COUNT, AUTOMATED 374 10^3/uL (150-450); RED BLOOD COUNT 3.47 10^6/uL (4.00-5.40); WHITE BLOOD COUNT 12.6 10^3/uL (4.0-10.0)
[2023-09-13 10:42] LABS: BLOOD UREA NITROGEN 30 MG/DL (9-23); CALCIUM LEVEL 9.1 MG/DL (8.5-10.1); CARBON DIOXIDE LEVEL 29 MMOL/L (20-31); CHLORIDE LEVEL 104 MMOL/L (98-107); CREATININE FOR GFR 0.96 MG/DL (0.55-1.30); GLOMERULAR FILTRATION RATE > 60.0 (>51); GLUCOSE, FASTING 181 MG/DL (60-100); POTASSIUM SERUM 3.8 MMOL/L (3.5-5.1); SODIUM LEVEL 139 MMOL/L (136-145)
[2023-09-13] MEDS ORDERED: MUCI600T31 PO (11:42)
[2023-09-13] MEDS ORDERED: SYMB16INH INH (11:42)
[2023-09-13] MEDS ORDERED: PRED20TA PO (11:42)
[2023-09-13] MEDS ORDERED: BENZ-18 PO (11:42)
[2023-09-13] MEDS ORDERED: NICO21PAT TD (11:42)
[2023-09-13] MEDS ORDERED: OSEL75CA2 PO (11:42)
[2023-09-13] MEDS ORDERED: IPRATROPIUM HFA INHALER 12.9 GRAMS (ATROVENT HFA) INH SCH (20:00)
== END 2023-09-13 12:48 | disposition home or self-care (01) ==
LOC: M ED 00:02 → M ED INP 10:38 → M MSPAV 14:14
PROVIDERS: ADMIT Student in an Organized Health Care Education/Training Program; ATTEND Internal Medicine
DX: J09.X2 Influenza due to identified novel influenza A virus with other respiratory manifestations (principal); J44.1 Chronic obstructive pulmonary disease with (acute) exacerbation; R09.02 Hypoxemia; I25.10 Atherosclerotic heart disease of native coronary artery without angina pectoris; I25.2 Old myocardial infarction; L40.9 Psoriasis, unspecified; F17.218 Nicotine dependence, cigarettes, with other nicotine-induced disorders; F41.9 Anxiety disorder, unspecified; F32.A Depression, unspecified; Z98.61 Coronary angioplasty status; Z79.82 Long term (current) use of aspirin; Z79.899 Other long term (current) drug therapy; Z88.8 Allergy status to other drugs, medicaments and biological substances
CPT/HCPCS: 36415; 71045; 80048; 80076; 82550; 82553; 82803; 83605; 83735; 84145; 85025; 85027; 87040; 87077; 87486; 87581; 87633; 87798; 93005; 93041; 94640; 94760; 96374; 96375; 96376; 99285; J1100; J1650; J2920; J7512

== ENCOUNTER → 2023-11-12 | Outpatient (CLI) | payer OTHER, MEDICAID ==
[~2023-11-12] MED LIST changes: +ATOR40TA75 PO; +BENZ-18 PO; +CARV6.25 PO; +CITA40TA7 PO; +COLC0.6T47 PO; +D31000CA4 PO; +IBUP80TA PO; +MUCI600T31 PO; +NICO21PAT TD; +OMEP40CA5 PO; +OSEL75CA2 PO; +SYMB16INH INH
[2023-11-12 13:32] LABS: HEMOGLOBIN A1c 5.8 % (4.0-6.0)
[2023-11-12 14:02] LABS: THYROID STIMULATING HORMONE 0.916 uIU/ML (0.55-4.78)
[2023-11-12 14:04] LABS: ALBUMIN 3.8 G/DL (3.2-5.2); BILIRUBIN,TOTAL 0.2 MG/DL (0.3-1.2); CALCIUM LEVEL 9.7 MG/DL (8.5-10.1); CHOLESTEROL RISK RATIO 4.02 (<5); CREATININE FOR GFR 1.03 MG/DL (0.55-1.30); GLOMERULAR FILTRATION RATE 59.4 (>51); HDL CHOLESTEROL 36.8 MG/DL (>40); LDL CHOLESTEROL 79.8 MG/DL (<100); NON-HDL-C 111.2 MG/DL; POTASSIUM SERUM 4.9 MMOL/L (3.5-5.1)
[2023-11-12 14:07] LABS: URIC ACID 7.2 MG/DL (3.1-7.8)
== END ==
LOC: M PLALAB 09:41
PROVIDERS: ATTEND Nurse Practitioner Adult Health
DX: I10 Essential (primary) hypertension (principal); E74.39 Other disorders of intestinal carbohydrate absorption; E78.2 Mixed hyperlipidemia; Z13.9 Encounter for screening, unspecified; E55.9 Vitamin D deficiency, unspecified; M25.50 Pain in unspecified joint

== ENCOUNTER → 2024-03-10 | Outpatient (CLI) | payer OTHER ==
[2024-03-10 13:41] LABS: HEMATOCRIT 41.9 % (36.0-47.0); HEMOGLOBIN 13.9 g/dl (12.0-15.5); MEAN CORPUSCULAR HEMOGLOBIN 32.8 pg (27.0-33.0); MEAN CORPUSCULAR HGB CONC 33.2 g/dl (32.0-36.5); MEAN CORPUSCULAR VOLUME 98.8 fl (80.0-96.0); PLATELET COUNT, AUTOMATED 334 10^3/uL (150-450); RED BLOOD COUNT 4.24 10^6/uL (4.00-5.40); WHITE BLOOD COUNT 5.7 10^3/uL (4.0-10.0)
[2024-03-10 13:59] LABS: HEMOGLOBIN A1c 5.9 % (4.0-6.0)
[2024-03-10 14:07] LABS: CREATININE, URINE 64.1 MG/DL; MALB URINE SIEMENS < 3.0 MG/L; MAU/CREAT RATIO 4.6 MCG/MG (0.0-30.0)
[2024-03-10 14:14] LABS: ALBUMIN 3.6 G/DL (3.2-5.2); ALKALINE PHOSPHATASE 113 U/L (46-116); ALT/SGPT 44 U/L (7.0-40); AST/SGOT 43 U/L (<34); BILIRUBIN,TOTAL 0.4 MG/DL (0.3-1.2); BLOOD UREA NITROGEN 8 MG/DL (9-23); CALCIUM LEVEL 9.9 MG/DL (8.5-10.1); CARBON DIOXIDE LEVEL 27 MMOL/L (20-31); CHLORIDE LEVEL 106 MMOL/L (98-107); CHOLESTEROL LEVEL 117 MG/DL (<200); CHOLESTEROL RISK RATIO 4.39 (<5); CREATININE FOR GFR 0.86 MG/DL (0.55-1.30); FREE T4 1.08 NG/DL (0.89-1.76); GLOMERULAR FILTRATION RATE > 60.0 (>51); GLUCOSE, FASTING 108 MG/DL (60-100); HDL CHOLESTEROL 26.6 MG/DL (>40); LDL CHOLESTEROL 51.4 MG/DL (<100); NON-HDL-C 90.4 MG/DL; POTASSIUM SERUM 4.1 MMOL/L (3.5-5.1); SODIUM LEVEL 137 MMOL/L (136-145); THYROID STIMULATING HORMONE 1.123 uIU/ML (0.55-4.78); TOTAL 25(OH) VITAMIN D 48.9 NG/ML (20.0-100.0); TOTAL PROTEIN 7.1 G/DL (5.7-8.2); TRIGLYCERIDES LEVEL 195 MG/DL (<150)
== END ==
LOC: M PLALAB 10:37
PROVIDERS: ATTEND Nurse Practitioner Adult Health
DX: E78.2 Mixed hyperlipidemia (principal); I10 Essential (primary) hypertension; E74.39 Other disorders of intestinal carbohydrate absorption; E55.9 Vitamin D deficiency, unspecified

== ENCOUNTER → 2024-09-03 | Outpatient (CLI) | payer MEDICAID, OTHER ==
[2024-09-03 14:21] LABS: BILIRUBIN,TOTAL 0.5 MG/DL (0.3-1.2); CALCIUM LEVEL 10.5 MG/DL (8.5-10.1); CREATININE FOR GFR 1.03 MG/DL (0.55-1.30); GLOMERULAR FILTRATION RATE 59.2 (>51); POTASSIUM SERUM 4.4 MMOL/L (3.5-5.1); TOTAL PROTEIN 7.6 G/DL (5.7-8.2)
[2024-09-12 23:03] LABS: ALPHA 2-MACROGLOBULINS,QN 251 mg/dL (106-279); ALT (SGPT) P5P 34 U/L (6-29); APOLIPOPROTEIN A-1 103 mg/dL (101-198); BILIRUBIN, TOTAL 0.5 mg/dL (0.2-1.2); FIBROSIS SCORE 0.29; FIBROSIS STAGE MINIMAL FIBROSIS (F0); GGT 20 U/L (3-70); HAPTOGLOBIN 209 mg/dL (43-212); NECROINFLAM ACT GRADE NO ACTIVITY (A0); NECROINFLAM ACT SCORE 0.17
== END ==
LOC: M PLALAB 09:48
PROVIDERS: ATTEND Nurse Practitioner Adult Health
DX: I10 Essential (primary) hypertension (principal); R74.8 Abnormal levels of other serum enzymes

== ENCOUNTER → 2025-08-26 | Outpatient (CLI) | payer OTHER ==
[~2025-08-26] MED LIST changes: -BAYE325T12 PO; +BAYE325T2 PO; -COLC0.6T47 PO; +COLC0.6T53 PO; -IBUP-1022 PO; +IBUP600T42 PO
[2025-08-26 15:05] LABS: PLATELET COUNT, AUTOMATED 305 10^3/uL (150-450)
[2025-08-26 15:34] LABS: FREE T4 1.03 NG/DL (0.89-1.76)
[2025-08-26 15:38] LABS: ESTIMATED AVERAGE GLUCOSE 120.0 MG/DL (60-110)
[2025-08-26 15:39] LABS: ALT/SGPT 24.0 U/L (7.0-40); AST/SGOT 36.0 U/L (<34); CALCIUM LEVEL 9.6 MG/DL (8.5-10.1); CARBON DIOXIDE LEVEL 26.0 MMOL/L (20-31); CHLORIDE LEVEL 106.0 MMOL/L (98-107); CHOLESTEROL LEVEL 128.0 MG/DL (<200); CHOLESTEROL RISK RATIO 5.01 (<5); CREATININE FOR GFR 1.21 MG/DL (0.55-1.30); GLOMERULAR FILTRATION RATE 52.6 (>51); LDL CHOLESTEROL 67.7 MG/DL (<100); MAGNESIUM LEVEL 1.9 MG/DL (1.8-2.4); NON-HDL-C 102.5 MG/DL; POTASSIUM SERUM 4.8 MMOL/L (3.5-5.1); SODIUM LEVEL 141.0 MMOL/L (136-145); TRIGLYCERIDES LEVEL 174.0 MG/DL (<150)
== END ==
LOC: M PLALAB 09:00
PROVIDERS: ATTEND Nurse Practitioner Adult Health
DX: E78.2 Mixed hyperlipidemia (principal); I10 Essential (primary) hypertension; E74.39 Other disorders of intestinal carbohydrate absorption; E78.5 Hyperlipidemia, unspecified; M25.50 Pain in unspecified joint; E55.9 Vitamin D deficiency, unspecified